=== PATIENT | male | born 1935 | race Caucasian/White ===

== ENCOUNTER 2021-02-15 14:02 | Outpatient (REF) | payer MEDICARE, OTHER, SELFPAY ==
--- NOTE | ~2021-02-15 | CT_ITS ---
EXAMINATION: CT ABDOMEN AND PELVIS WITH CONTRAST CLINICAL INFORMATION: Disease of pancreas. Abdominal aortic aneurysm. COMPARISON: Previous CT of the abdomen and pelvis November 2019. TECHNIQUE: Multidetector volumetric images were obtained from the superior aspect of the liver through the pubic symphysis following administration 85 mL of Omnipaque 350 intravenous contrast. Sagittal and coronal reformatted images were obtained on the technologist's workstation. Oral contrast: Yes This CT examination was performed using dose optimization techniques as appropriate, variously including the following: *Automated exposure control *Adjustment of mA and/or kV according to patient size (this includes techniques or standardized protocols for targeted exams where dose is matched to indication/reason for exam; i.e. extremities or head) *Use of iterative reconstruction technique DLP: 747 mGy-cm FINDINGS: LUNG BASES: The visualized lung bases are clear. There is a large esophageal hernia or intrathoracic stomach. The heart is enlarged. There is aortic valve calcification. LIVER, GALLBLADDER, AND BILIARY TREE: The liver is normal in size, shape, and attenuation. There are 2 small 4 mm low-attenuation lesions in the posterior segment of the right lobe of the liver axial image 8 and 40 series 3 that are stable. These are too small to definitively characterize but probably represent cysts. No biliary ductal dilatation is present. The gallbladder is unremarkable with no evidence of radiopaque gallstones, gallbladder wall thickening, or obvious pericholecystic inflammatory changes. PANCREAS: There is a 1.5 x 2.1 cm cyst in the uncinate process of the head of the pancreas axial image 32 series 3. This measured 1.1 x 2 cm on prior exam November 2019 and is slightly increased in size. The pancreas is otherwise unremarkable. The main pancreatic duct does not appear dilated. SPLEEN: Unremarkable. ADRENAL GLANDS: There is a 1.6 x 2 cm right adrenal nodule that is stable. Left adrenal gland is unremarkable. KIDNEYS AND URETERS: There is a 3.8 x 5.2 cm left renal cyst that is stable. There is a smaller 5 mm low-attenuation lesion upper pole of the left kidney axial image 33 series 3 that is stable and probably represents a small cyst. No imaging follow-up needed. The kidneys are normal in size, shape, and attenuation. No hydronephrosis, hydroureter, or calculi seen. No perinephric stranding. BLADDER: Unremarkable. GASTROINTESTINAL TRACT: There is mild diverticulosis of the colon. Small and large bowel are otherwise unremarkable. The appendix is not identified. There is a large esophageal hernia or intrathoracic stomach. ABDOMINAL WALL: There is a small umbilical hernia containing fat. There are postsurgical changes to the left lower abdominal wall. LYMPH NODES: There are small retroperitoneal lymph nodes. No enlarged nodes are seen. VASCULAR: There is a lower abdominal aortic aneurysm. This measures 3.8 x 4.0 cm axial image 45 series 3. This is minimally increased from November 2019 exam when this measured 3.6 x 3.8 cm. PELVIC VISCERA: The prostate gland is enlarged and measures 6.3 x 5.6 cm in AP and transverse dimension. OSSEOUS STRUCTURES: There are degenerative changes of the spine and hip joints. There is mild anterior subluxation of L4 with respect to L5 that is stable probably related to facet arthritis. CT/CT abdomen pelvis w con IMPRESSION: Slight interval increase in size in the lower abdominal aortic aneurysm now measuring 3.8 x 4 cm. Slight interval increase in size in the cyst in the uncinate process of the head of the pancreas now measuring 1.5 x 2.1 cm. Large esophageal hernia or intrathoracic stomach. Diverticulosis. Enlarged prostate gland. Stable left renal and liver cysts. Stable right adrenal lesion. Fleischner guidelines were followed.
[2021-02-15] MEDS: iohexoL 350 MG/ML 100 ML INFUS..BTL 85 ML IV (16:30)
== END 2021-02-15 14:03 | disposition home or self-care (01) ==
LOC: HO.CT 14:02
PROVIDERS: Visit Provider Internal Medicine
DX: K86.9 Disease of pancreas, unspecified (principal); I71.4 Abdominal aortic aneurysm, without rupture
CPT/HCPCS: 74177; Q9967